=== PATIENT | female | born 1970 | race Caucasian/White ===

== ENCOUNTER 2017-12-15 09:14 | Emergency (ER) | payer OTHER ==
[2017-12-15 09:18] VITALS: BMI 26.2
[2017-12-15] MEDS ORDERED: ONDANSETRON 4 MG/2 ML VIAL IVPB ONE (09:31)
[2017-12-15] MEDS ORDERED: ACETAMINOPHEN 1000 MG/100 ML VIAL (NON FORMULARY) IVPB ONE (09:31)
[2017-12-15] MEDS ORDERED: SODIUM CHLORIDE 1,000 ML IV STA (09:31)
[2017-12-15] MEDS ORDERED: PANTOPRAZOLE SODIUM 40 MG VIAL IVPUSH ONE (09:31)
[2017-12-15] MEDS ORDERED: MAG HYDROX/AL HYDROX/SIMETH 30 ML UNIT-DOSE CUP PO ONE (09:31)
[2017-12-15] MEDS ORDERED: FAMOTIDINE 20 MG/50 ML IVPB 20 MG/50 ML MG IVPB ONE ×2 (09:31→09:42)
--- NOTE | 2017-12-15 09:37 | PDOC ---
History of Present Illness - General History Source: Patient Exam Limitations: No Limitations <SoniaDaniel - Last Filed: 12/15/17 12:14> - History of Present Illness Initial Comments: 12/15/17 09:40 This patient is a 47 F, with no significant PMHx, who presents with epigastric pain since 8:30 this morning. Patient states that she woke up at 5:00am this morning and as perfectly fine. She states that she ate eggs, tortillas, beans, milk for breakfast and felt nauseous afterwards. She then went to work and began experiencing epigastric pain that radiates to her back, she rates her pain 8/10. She states that she never felt this pain before. She denies fever, diarrhea, or chest pain. <Lyubov Toribio - Last Filed: 12/15/17 12:44> - General Chief Complaint: Pain Stated Complaint: CHEST/ABD PAIN Time Seen by Provider: 12/15/17 09:24 Past History - Past Medical History COPD: No - Suicide/Smoking/Psychosocial Hx Smoking History: Never smoked <Daniel Scott - Last Filed: 12/15/17 12:14> <Lyubov Toribio - Last Filed: 12/15/17 12:44> - Past Medical History Allergies/Adverse Reactions: Allergies Allergy/AdvReac Type Severity Reaction Status Date / Time No Known Allergies Allergy Verified 12/15/17 09:18 Home Medications: Ambulatory Orders Acetaminophen [Tylenol] 650 mg PO Q4H PRN #20 tablet 12/15/17 Oxycodone HCl [Roxicodone] 5 mg PO Q6H PRN #12 tablet MDD 4 12/15/17 Review of Systems - Review of Systems Comments:: GENERAL/CONSTITUTIONAL: No fever or chills. No weakness. HEAD, EYES, EARS, NOSE AND THROAT: No change in vision. No ear pain or discharge. No sore throat. CARDIOVASCULAR: No chest pain or shortness of breath. RESPIRATORY: No cough, wheezing, or hemoptysis. GASTROINTESTINAL: +nausea,+epigastric pain, no vomiting, diarrhea or constipation. GENITOURINARY: No dysuria, frequency, or change in urination. MUSCULOSKELETAL: + back pain. No joint pain. No neck pain. SKIN: No rash NEUROLOGIC: No headache, vertigo, loss of consciousness, or change in strength/ sensation. ENDOCRINE: No increased thirst. No abnormal weight change. HEMATOLOGIC/LYMPHATIC: No anemia, easy bleeding, or history of blood clots. ALLERGIC/IMMUNOLOGIC: No hives or skin allergy. <Lyubov Toribio - Last Filed: 12/15/17 12:44> *Physical Exam - Vital Signs Last Vital Signs Temp Pulse Resp BP Pulse Ox 97 F L 64 18 139/76 99 12/15/17 09:16 12/15/17 09:16 12/15/17 09:16 12/15/17 09:16 12/15/17 09:16 <Daniel Scott - Last Filed: 12/15/17 12:14> - Vital Signs Last Vital Signs Temp Pulse Resp BP Pulse Ox 97 F L 64 18 139/76 99 12/15/17 09:16 12/15/17 09:16 12/15/17 09:16 12/15/17 09:16 12/15/17 09:16 - Physical Exam Comments: 12/15/17 09:41 GENERAL: Awake, alert, and fully oriented, uncomfortable in appearance. HEAD: No signs of trauma EYES: PERRLA, EOMI, sclera anicteric, conjunctiva clear ENT: Auricles normal inspection, hearing grossly normal, nares patent. Moist mucosa LUNGS: Breath sounds equal, clear to auscultation bilaterally. No wheezes, and no crackles HEART: Regular rate and rhythm, normal S1 and S2, no murmurs, rubs or gallops ABDOMEN: Soft, mildly tender to RUQ, epigastric tenderness to palpation. No guarding, no rebound. No masses EXTREMITIES: Normal range of motion, no edema. No clubbing or cyanosis. No cords, erythema, or tenderness NEUROLOGICAL: Cranial nerves II through XII grossly intact. Normal speech, normal gait SKIN: Warm, Dry, normal turgor, no rashes or lesions noted. <Lyubov Toribio - Last Filed: 12/15/17 12:44> Heart Score/ECG Review #1 ECG reviewed & interpreted by me at: 09:25 12/15/17 09:37 NSR 61, no std/jhonatan, T wave flat III, normal axis, normal intervals, QTC 386 msec <Daniel Scott - Last Filed: 12/15/17 12:14> ED Treatment Course - LABORATORY CBC & Chemistry Diagram: 12/15/17 10:26 12/15/17 10:26 - RADIOLOGY Radiology Studies Ordered: Category Date Time Status ABDOMEN US [US] Stat Ultrasound 12/15/17 09:31 Ordered <SoniaDaniel - Last Filed: 12/15/17 12:14> - LABORATORY CBC & Chemistry Diagram: 12/15/17 10:26 12/15/17 10:26 - RADIOLOGY Radiograph Interpretation: US Abdomen Impression: Choleithiasis Multiple gallstones seen within the gallbladder. Largest measure 1.4 cm. Reported By: Lorenzo Lim MD 12/15/17 1131 12/15/17 12:41 Chest X-ray A single apical lordotic view reveals clear lungs, prominent mediastinum and sharp angles. An acute chest process is not seen. Since the prior study of 2007, there is a more apical lordotic projection and slightly more prominent heart. Correlation recommended. Reported By: Kwabena Reed MD 12/15/17 1011 <Lyubov Toribio - Last Filed: 12/15/17 12:44> Medical Decision Making - Medical Decision Making 12/15/17 09:33 A portion of this note was documented by scribe services under my direction. I have reviewed the details of the note, within reason, and agree with the documentation with the following case summary and management plan written by me. Patient treated in the ED. . Nursing notes are reviewed and incorporated into the medical decision-making. Vital signs reviewed. Peripheral IV access obtained by the nurse, laboratory studies are drawn and sent, reviewed and interpreted by myself. Vital Signs Temp Pulse Resp BP Pulse Ox 97 F L 64 18 139/76 99 12/15/17 09:16 12/15/17 09:16 12/15/17 09:16 12/15/17 09:16 12/15/17 09:16 47-year-old female with no past medical history presents with epigastric pain since 8:30 is 1. Patient woke up at approximately 5:00 morning in her usual state of health. She ate some beans and tortilla and subsequently felt epigastric pain with nausea. States radiates into her chest. Denies fevers or chills and vomiting. Denies diarrhea. Denies sick contacts. Denies prior history of gallstones. I suspect patient likely has gastritis. However, given her age and being female , we'll need to rule out biliary colic or acute cholecystitis. Less suspicion for acute coronary syndrome. We'll obtain an ultrasound and labs and treat symptoms and reassess. 12/15/17 12:14 CBC, BMP 12/15/17 10:26 12/15/17 10:26 CMP Sodium 136 mmol/L (136-145) 12/15/17 10:26 Potassium 4.0 mmol/L (3.5-5.1) 12/15/17 10:26 Chloride 104 mmol/L (98-107) 12/15/17 10:26 Carbon Dioxide 25 mmol/L (21-32) 12/15/17 10:26 Anion Gap 7 (8-16) L 12/15/17 10:26 BUN 11 mg/dL (7-18) 12/15/17 10:26 Creatinine 0.6 mg/dL (0.55-1.02) 12/15/17 10:26 Creat Clearance w eGFR > 60 (>60) 12/15/17 10:26 Random Glucose 78 mg/dL (74-106) 12/15/17 10:26 Calcium 10.3 mg/dL (8.5-10.1) H 12/15/17 10:26 Total Bilirubin 0.4 mg/dL (0.2-1.0) 12/15/17 10:26 AST 34 U/L (15-37) 12/15/17 10:26 ALT 38 U/L (12-78) 12/15/17 10:26 Alkaline Phosphatase 69 U/L (45-117) 12/15/17 10:26 Creatine Kinase 111 IU/L (26-192) 12/15/17 10:26 Troponin I < 0.02 ng/ml (0.00-0.05) 12/15/17 10:26 Total Protein 8.4 g/dl (6.4-8.2) H 12/15/17 10:26 Albumin 4.1 g/dl (3.4-5.0) 12/15/17 10:26 Lipase 304 U/L (73-393) 12/15/17 10:26 Ultrasound demonstrates cholelithiasis. Patient reported feeling better after medications. I suspect she had biliary colic. At this point, the patient has no symptoms and like to go home. I advised patient that if she has persistent pain fevers that she should return to the ED. In the meantime, we'll give referral to a surgeon for outpatient elective cholecystectomy. Patient will be going home with . I discussed the physical exam findings, ancillary test results and final diagnoses with the patient. I answered all of the patient's questions. The patient was satisfied with the care received and felt comfortable with the discharge plan and treatment plan. The patient will call their primary care physician within 24 hours to arrange follow-up and will return to the Emergency Department with any new, persistant or worsening symptoms. <Daniel Scott - Last Filed: 12/15/17 12:14> *DC/Admit/Observation/Transfer - Discharge Dispostion Decision to Admit order: No <Daniel Scott - Last Filed: 12/15/17 12:14> - Attestations Scribe Attestion: 12/15/17 09:42 Documentation prepared by Lyubov Toribio, acting as medical coding manager for Daniel Scott MD. <Lyubov Toribio - Last Filed: 12/15/17 12:44> Diagnosis at time of Disposition: Biliary colic - Discharge Dispostion Disposition: HOME Condition at time of disposition: Improved - Prescriptions Prescriptions: Acetaminophen [Tylenol] 650 mg PO Q4H PRN #20 tablet PRN Reason: Abdominal Pain Oxycodone HCl [Roxicodone] 5 mg PO Q6H PRN #12 tablet MDD 4 PRN Reason: Abdominal Pain - Referrals Referrals: Irma Akbar MD [Primary Care Provider] - Marcin Holt MD [Staff Physician] - - Patient Instructions Printed Discharge Instructions: DI for Biliary Colic Additional Instructions: Please take 650 mg tylenol every 4 hours as needed for pain. For additional pain relief, take a tablet of oxycodone every 6 to 8 hours as needed. Please avoid oily and fatty foods as this may make your pain worse. If you have persistent pain or fevers, please call your doctor or return to the ER. Otherwise, please make an appointment with a general surgeon as you will need to be seen. Print Language: CZECH
[2017-12-15] MEDS ORDERED: PANTOPRAZOLE SODIUM 40 MG/100 ML BAG IVPB ONE (09:42)
[2017-12-15] MEDS ORDERED: MAG HYDROX/AL HYDROX/SIMETH 30 ML UNIT-DOSE CUP ONE (09:42)
[2017-12-15] MEDS ORDERED: ACETAMINOPHEN INJECTION 100 ML IVPB ONE (09:42)
[2017-12-15] MEDS ORDERED: ONDANSETRON 4 MG/2 ML VIAL ONE (09:49)
[2017-12-15 10:35] LABS: BASO % 1.2 % (0-2.0); EOS % 2.7 % (0-4.5); HEMATOCRIT 38.7 % (32.4-45.2); HEMOGLOBIN 13.3 GM/dL (10.7-15.3); LYMPH % 23.3 % (8-40); MCH 32.7 pg (25.7-33.7); MCHC 34.3 g/dl (32.0-36.0); MEAN CELL VOLUME 95.2 fl (80-96); MONO % 3.4 % (3.8-10.2); NEUT % 69.4 % (42.8-82.8); PLATELET COUNT 285 K/MM3 (134-434); RBC 4.07 M/mm3 (3.60-5.2); RDW 13.9 % (11.6-15.6)
[2017-12-15 10:54] LABS: URINE APPEARANCE TURBID; URINE BILIRUBIN NEGATIVE (<2.0 mg/dL); URINE COLOR AMBER; URINE GLUCOSE (UA) NEGATIVE (NEGATIVE); URINE KETONE TRACE (NEGATIVE); URINE LEUK ESTERASE NEGATIVE (NEGATIVE); URINE NITRITE NEGATIVE (NEGATIVE); URINE PROTEIN NEGATIVE (NEGATIVE); URINE UROBILINOGEN NEGATIVE mg/dL (0.2-1.0)
[2017-12-15 10:55] LABS: HCG,QUALITATIVE URINE NEGATIVE
[2017-12-15 11:01] LABS: EPI CELLS RARE /HPF (FEW); URINE BACTERIA MANY /hpf (NONE SEEN)
[2017-12-15] MEDS ORDERED: morphine CARPU-JECT 4 MG/1 ML DISP.SYRIN IVPUSH ONE (11:40)
[2017-12-15 11:42] LABS: ALBUMIN 4.1 g/dl (3.4-5.0); ANION GAP 7 (8-16); BILIRUBIN,TOTAL 0.4 mg/dL (0.2-1.0); BLOOD UREA NITROGEN 11 mg/dL (7-18); CALCIUM 10.3 mg/dL (8.5-10.1); CHLORIDE 104 mmol/L (98-107); CO2 25 mmol/L (21-32); CREATININE 0.6 mg/dL (0.55-1.02); GLUCOSE,RANDOM 78 mg/dL (74-106); SGOT/AST 34 U/L (15-37); SGPT/ALT 38 U/L (12-78); SODIUM 136 mmol/L (136-145); TOT PROT 8.4 g/dl (6.4-8.2)
[2017-12-15] MEDS ORDERED: morphine SULFATE 4 MG/ML VIAL ONE (11:43)
[2017-12-15 11:45] LABS: ALK PHOS 69 U/L (45-117)
[2017-12-15 11:49] LABS: LIPASE 304 U/L (73-393)
[2017-12-15 12:59] VITALS: BP 104/63; PULSE 57; TEMP 98.1
--- NOTE | 2017-12-15 17:48 | EKG ---
Test Reason : Blood Pressure : / mmHG Vent. Rate : 061 BPM Atrial Rate : 061 BPM P-R Int : 136 ms QRS Dur : 082 ms QT Int : 384 ms P-R-T Axes : 025 016 032 degrees QTc Int : 386 ms NORMAL SINUS RHYTHM NORMAL ECG NO PREVIOUS ECGS AVAILABLE Confirmed by ANTWON MASON MD ([id number]) on 12/15/2017 5:48:03 PM Referred By: Confirmed By:ANTWON MASON MD
== END 2017-12-15 12:50 | disposition home or self-care (01) ==
LOC: JER 09:14
PROC: 3E0337Z Introduction of Electrolytic and Water Balance Substance into Peripheral Vein, Percutaneous Approach (ICD-10-PCS; principal; 2017-12-15)
PROC: 3E033GC Introduction of Other Therapeutic Substance into Peripheral Vein, Percutaneous Approach (ICD-10-PCS; 2017-12-15)
PROC: 3E033NZ Introduction of Analgesics, Hypnotics, Sedatives into Peripheral Vein, Percutaneous Approach (ICD-10-PCS; 2017-12-15)
PROC: 3E033NZ Introduction of Analgesics, Hypnotics, Sedatives into Peripheral Vein, Percutaneous Approach (ICD-10-PCS; 2017-12-15)
PROC: 3E033GC Introduction of Other Therapeutic Substance into Peripheral Vein, Percutaneous Approach (ICD-10-PCS; 2017-12-15)
PROC: 3E033GC Introduction of Other Therapeutic Substance into Peripheral Vein, Percutaneous Approach (ICD-10-PCS; 2017-12-15)
DX: K80.50 Calculus of bile duct without cholangitis or cholecystitis without obstruction (principal)
CPT/HCPCS: 36415; 71045-TC-FY; 76705-TC; 80053; 81003; 81015; 82550; 83690; 84484; 84703; 85025; 93005; 93010; 96361; 96365; 96375; 99284-25; J0131; J7030